=== PATIENT | male | born 1930 | race Caucasian/White ===

== ENCOUNTER → 2018-03-16 | Outpatient (CLI) | payer OTHER | LOC: CIMAGING 07:20 | PROVIDERS: ATTEND Family Medicine | DX: N28.1 Cyst of kidney, acquired (principal); K80.20 Calculus of gallbladder without cholecystitis without obstruction; R19.09 Other intra-abdominal and pelvic swelling, mass and lump; Z85.46 Personal history of malignant neoplasm of prostate; Z87.891 Personal history of nicotine dependence | CPT/HCPCS: 76700-PO ==

== ENCOUNTER → 2018-03-24 | Outpatient (CLI) | payer OTHER ==
[~2018-03-24] MED LIST: IOPAMIDOL (ISOVUE-300) 100 ML BTL ONE
== END ==
LOC: CIMAGING 09:26
PROVIDERS: ATTEND Family Medicine
DX: Z85.46 Personal history of malignant neoplasm of prostate (principal); J98.4 Other disorders of lung; I51.7 Cardiomegaly
CPT/HCPCS: 71046-PO; 74178-PO; Q9967

== ENCOUNTER → 2018-04-02 | Outpatient (CLI) | payer OTHER | LOC: FIMAGING 08:56 | PROVIDERS: ATTEND Specialist | DX: C61 Malignant neoplasm of prostate (principal); R93.8 Abnormal findings on diagnostic imaging of other specified body structures; Z96.652 Presence of left artificial knee joint | CPT/HCPCS: 73562; 78306; A9503 ==